=== PATIENT | male | born 1945 | race Caucasian/White ===

== ENCOUNTER 2024-11-26 08:29 | Emergency (ER) | payer MEDICARE, MEDICAID ==
[~2024-11-26] VITALS: Ht 175.3 cm; Wt 52.2 kg
[2024-11-26] MEDS ORDERED: PROM118S5 PO (10:57)
[2024-11-26 11:09] VITALS: BP 137/78; PULSE 80; RESP 17; TEMP 97.8; O2SAT 97
== END 2024-11-26 11:10 | disposition home or self-care (01) ==
LOC: ER 08:30
DX: S13.4XXA Sprain of ligaments of cervical spine, initial encounter (principal); S00.03XA Contusion of scalp, initial encounter; G44.309 Post-traumatic headache, unspecified, not intractable; Z59.02 Unsheltered homelessness; W22.8XXA Striking against or struck by other objects, initial encounter; Y93.89 Activity, other specified; Y92.89 Other specified places as the place of occurrence of the external cause; Y99.8 Other external cause status
CPT/HCPCS: 70450; 72125; 99284

== ENCOUNTER 2025-04-04 21:28 | Emergency (ER) | payer MEDICARE, MEDICAID ==
[~2025-04-04] VITALS: Ht 175.3 cm; Wt 55.0 kg
[2025-04-04 21:45] VITALS: BP 134/72; PULSE 94; RESP 16; TEMP 98.2; O2SAT 96
== END 2025-04-05 02:01 | disposition left against medical advice (07) ==
LOC: ER 21:29
DX: M79.662 Pain in left lower leg (principal); M79.661 Pain in right lower leg; M54.50 Low back pain, unspecified; Z53.21 Procedure and treatment not carried out due to patient leaving prior to being seen by health care provider